=== PATIENT | female | born 1955 | race Caucasian/White ===

== ENCOUNTER 2021-08-26 16:45 | Emergency (ER) | payer OTHER ==
[2021-08-26] MEDS ORDERED: DIPHTH,PERTUSS(ACELL),TET 0.5 ML DISP.SYRIN IM ONE ×2 (17:40→17:47)
[2021-08-26 17:54] VITALS: BP 162/80; PULSE 74; TEMP 98.6; BMI 28.0
== END 2021-08-26 18:17 | disposition home or self-care (01) ==
LOC: FER 16:45
PROC: 0HQFXZZ Repair Right Hand Skin, External Approach (ICD-10-PCS; principal; 2021-08-26)
PROC: 3E0234Z Introduction of Serum, Toxoid and Vaccine into Muscle, Percutaneous Approach (ICD-10-PCS; 2021-08-26)
DX: S61.220A Laceration with foreign body of right index finger without damage to nail, initial encounter (principal); W26.0XXA Contact with knife, initial encounter; Y92.9 Unspecified place or not applicable
CPT/HCPCS: 12001-25; 73140-TC-RT-FY; 90471; 90715; 99284-25